=== PATIENT | female | born 1950 | race Caucasian/White ===

== ENCOUNTER 2016-10-13 17:37 | Emergency (ER) | payer MEDICARE, BC, OTHER ==
[~2016-10-13] VITALS: Ht 160 cm; Wt 90.9 kg
[~2016-10-13 17:37] MED LIST: ADIPEX-P37.5 MG PO; ALDACTONE 25MG25 M1 PO; AMBIEN 10MG10 MG PO; ASPI325T6 PO; ASPIR-LOW81 MG PO; COLACE 100100 MG/CAP PO; FERROUS SU325 MG/TAB PO; FISH OIL 1000MG1 CAP PO; FLONASEALLERGY NS; FOLIC ACID 40400 MCG PO; HCTZ 25MG TAB25 MG PO; KLOR-CON 1010 MEQ PO; KRILL OIL PO; LIPITOR 10MG10 MG PO; MACROBID100 MG PO; MELAT3MGTAB PO; MULTI VITAMINS1 TAB PO; MVI PO; NEXIUM 40MG40 MG PO; NORCO 325 MG-7.1 TAB PO; NORVASC 10MG10 MG PO; NORVASC 5MG5 MG/TAB; PHENTERMINE15 MG PO; ROXICODONE 55 MG/TAB PO; TAMBOCOR50 MG PO; TEKTURNA150 MG PO; VITAMIN C500 MG PO; ZOCOR5 MG PO
[2016-10-13 17:46] VITALS: TEMP 97.6
[2016-10-13 21:05] VITALS: BP 140/61; PULSE 77
== END 2016-10-13 21:06 | disposition home or self-care (01) ==
LOC: COL.ER 17:37
DX: S09.90XA Unspecified injury of head, initial encounter (principal); S16.1XXA Strain of muscle, fascia and tendon at neck level, initial encounter; S00.03XA Contusion of scalp, initial encounter; S70.01XA Contusion of right hip, initial encounter; W10.9XXA Fall (on) (from) unspecified stairs and steps, initial encounter; Y92.008 Other place in unspecified non-institutional (private) residence as the place of occurrence of the external cause; I10 Essential (primary) hypertension; Z87.891 Personal history of nicotine dependence; R40.2362 Coma scale, best motor response, obeys commands, at arrival to emergency department; R40.2142 Coma scale, eyes open, spontaneous, at arrival to emergency department; R40.2252 Coma scale, best verbal response, oriented, at arrival to emergency department

== ENCOUNTER → 2016-10-15 | Outpatient (CLI) | payer MEDICARE, BC, OTHER ==
[~2016-10-15] VITALS: Ht 160 cm; Wt 89.8 kg
[~2016-10-15] MED LIST changes: +ALEVE PM PO; +ATARAX 25MG25 MG/TAB PO; +DOXYCYCLINE 10100 MG PO; +LEXAPRO 10MG10 MG PO; +SENOKOT S 50 MG1 TAB PO; +TYLENOL 8 HR PO; +ZYRTEC 10MG10 MG PO
[2016-10-15 13:05] VITALS: BP 134/72; PULSE 66
[2016-10-15 15:29] VITALS: BP 134/72; PULSE 66
== END ==
LOC: LIGHT 10:24
DX: Z79.84 Long term (current) use of oral hypoglycemic drugs (principal); E66.09 Other obesity due to excess calories; Z68.35 Body mass index [BMI] 35.0-35.9, adult

== ENCOUNTER 2017-02-08 20:42 | Emergency (ER) | payer MEDICARE, BC, OTHER ==
[~2017-02-08] VITALS: Ht 160 cm; Wt 93.2 kg
[~2017-02-08 20:42] MED LIST changes: -ALEVE PM PO; -ATARAX 25MG25 MG/TAB PO; -DOXYCYCLINE 10100 MG PO; -LEXAPRO 10MG10 MG PO; -SENOKOT S 50 MG1 TAB PO; -TYLENOL 8 HR PO; -ZYRTEC 10MG10 MG PO
[2017-02-08 20:44] VITALS: BP 151/84; TEMP 98.1
[2017-02-08] MEDS ORDERED: ZYRTEC 10MG10 MG PO (20:47)
[2017-02-08] MEDS ORDERED: DOXYCYCLINE 10100 MG PO (21:34)
[2017-02-08 21:44] VITALS: PULSE 82
[2017-02-12 16:01] LABS: LYME IgG WESTERN BLOT Negative (Negative)
== END 2017-02-08 21:45 | disposition home or self-care (01) ==
LOC: COL.ER 20:42
PROVIDERS: Physician Assistant
DX: S30.861A Insect bite (nonvenomous) of abdominal wall, initial encounter (principal); W57.XXXA Bitten or stung by nonvenomous insect and other nonvenomous arthropods, initial encounter; I10 Essential (primary) hypertension; K21.9 Gastro-esophageal reflux disease without esophagitis

== ENCOUNTER 2017-04-23 12:30 | Inpatient (IN) | payer MEDICARE, BC, OTHER ==
[~2017-04-23] VITALS: Ht 160 cm; Wt 95.3 kg
[~2017-04-23 12:30] MED LIST changes: +DOXYCYCLINE 10100 MG PO; +ZYRTEC 10MG10 MG PO
[2017-05-26] VITALS (9 sets, daily range): BP systolic 93–125; BP diastolic 47–61; PULSE 47–59; TEMP 97.9–98.9
[2017-05-26] MEDS ORDERED: LEXAPRO 10MG10 MG PO (10:26)
[2017-05-26] MEDS ORDERED: ATARAX 25MG25 MG/TAB PO (10:27)
[2017-05-26] MEDS ORDERED: ALEVE PM PO (10:28)
[2017-05-26] MEDS ORDERED: TYLENOL 8 HR PO (10:29)
[2017-05-27 00:34] VITALS: BP 116/61; PULSE 58; TEMP 98.3
[2017-05-27 04:12] VITALS: BP 115/56; PULSE 69; TEMP 98.3
[2017-05-27 07:30] LABS: HEMOGLOBIN 10.4 g/dl (12.5-16.0)
[2017-05-27 08:45] VITALS: BP 116/61; PULSE 66; TEMP 97.9
[2017-05-27 12:33] VITALS: BP 123/59; PULSE 61; TEMP 99.2
[2017-05-27 16:15] VITALS: BP 122/58; PULSE 57; TEMP 98
[2017-05-27 20:10] VITALS: BP 117/47; PULSE 61; TEMP 98.5
[2017-05-28 00:23] VITALS: BP 118/51; PULSE 64; TEMP 98.2
[2017-05-28 04:00] VITALS: BP 114/47; PULSE 58; TEMP 98.2
[2017-05-28 07:27] LABS: HEMATOCRIT 29.2 % (37.0-47.0); HEMOGLOBIN 9.9 g/dl (12.5-16.0)
[2017-05-28 09:29] VITALS: BP 126/50; PULSE 69; TEMP 98.5
[2017-05-28 11:53] VITALS: BP 108/44; PULSE 74; TEMP 98.7
[2017-05-28 15:53] VITALS: BP 91/34; PULSE 69; TEMP 98.5
[2017-05-28 20:12] VITALS: BP 107/44; PULSE 73; TEMP 99.9
[2017-05-29 00:38] VITALS: BP 107/50; PULSE 77; TEMP 100.4; TEMP 99.2
[2017-05-29 04:37] VITALS: BP 99/45; PULSE 64; TEMP 98.5
[2017-05-29] MEDS ORDERED: ASPI325T6 PO (07:01)
[2017-05-29] MEDS ORDERED: NORCO 325 MG-7.1 TAB PO (07:02)
[2017-05-29] MEDS ORDERED: ROXICODONE 55 MG/TAB PO (07:02)
[2017-05-29] MEDS ORDERED: SENOKOT S 50 MG1 TAB PO (07:03)
[2017-05-29 07:54] VITALS: BP 99/65; PULSE 75; TEMP 98.2
== END 2017-05-29 10:13 | disposition home or self-care (01) | DRG 470 ==
LOC: JCC 05-26 08:38
PROVIDERS: Orthopaedic Surgery
PROC: 0SRD0J9 Replacement of Left Knee Joint with Synthetic Substitute, Cemented, Open Approach (ICD-10-PCS; principal; 2017-05-26 14:30)
DX: M17.12 Unilateral primary osteoarthritis, left knee (principal); I10 Essential (primary) hypertension; Z87.891 Personal history of nicotine dependence
CPT/HCPCS: A4315; A9284; C1713; C1776; J0690; J1885; J2250; J2270; J2704; J3010; J7120

== ENCOUNTER → 2017-05-12 | Outpatient (CLI) | payer MEDICARE, BC, OTHER ==
[~2017-05-12] MED LIST changes: +ALEVE PM PO; +ATARAX 25MG25 MG/TAB PO; +LEXAPRO 10MG10 MG PO; +SENOKOT S 50 MG1 TAB PO; +TYLENOL 8 HR PO
== END ==
LOC: COL.LAB 13:02
DX: Z01.812 Encounter for preprocedural laboratory examination (principal)

== ENCOUNTER → 2017-07-24 | Outpatient (CLI) | payer MEDICARE, BC, OTHER | LOC: COL.VAS 09:07 | DX: M79.662 Pain in left lower leg (principal) ==

== ENCOUNTER 2017-08-08 15:30 | Outpatient (RCR) | payer MEDICARE, BC, OTHER | END 2017-09-09 12:58 | disposition home or self-care (01) | LOC: MKS.ESL.PT 15:30 | DX: Z47.1 Aftercare following joint replacement surgery (principal); M25.862 Other specified joint disorders, left knee; R60.0 Localized edema; Z96.652 Presence of left artificial knee joint | CPT/HCPCS: G8978-GP; G8979-GP; G8980-GP ==

== ENCOUNTER 2018-10-07 10:00 | Outpatient (RCR) | payer MEDICARE, BC, OTHER | END 2018-12-15 | disposition home or self-care (01) | LOC: WSC | DX: M70.61 Trochanteric bursitis, right hip (principal) | CPT/HCPCS: G8978-GP; G8979-GP ==

== ENCOUNTER → 2018-10-20 | Outpatient (CLI) | payer MEDICARE, BC, OTHER | LOC: WSC 09-24 15:45 → MC.RAD 09:40 | DX: Z12.31 Encounter for screening mammogram for malignant neoplasm of breast (principal) ==

== ENCOUNTER → 2019-11-26 | Outpatient (CLI) | payer MEDICARE, BC | LOC: MC.RAD 10:36 | DX: Z12.31 Encounter for screening mammogram for malignant neoplasm of breast (principal) ==

== ENCOUNTER → 2020-02-17 | Outpatient (CLI) | payer MEDICARE, BC | LOC: COL.RAD 11:56 | DX: E04.2 Nontoxic multinodular goiter (principal) ==

== ENCOUNTER → 2020-10-16 | Outpatient (RCR) | payer MEDICARE, BC | END | disposition home or self-care (01) | LOC: MKS.ESL.PT | DX: M22.2X1 Patellofemoral disorders, right knee (principal) ==

== ENCOUNTER 2020-11-15 11:05 | Outpatient (RCR) | payer MEDICARE, BC | END 2021-02-13 | disposition still patient (30) | LOC: MKS.ESL.PT | DX: M22.2X2 Patellofemoral disorders, left knee (principal) ==

== ENCOUNTER → 2021-01-16 | Outpatient (CLI) | payer MEDICARE, BC | LOC: MC.RAD 10:00 | DX: Z12.31 Encounter for screening mammogram for malignant neoplasm of breast (principal) ==

== ENCOUNTER → 2022-02-12 | Outpatient (CLI) | payer MEDICARE, BC | LOC: MC.RAD 10:45 | DX: Z12.31 Encounter for screening mammogram for malignant neoplasm of breast (principal) ==

== ENCOUNTER → 2023-08-12 | Outpatient (RCR) | payer MEDICARE, BC | LOC: MKS.ESL.PT | DX: M25.511 Pain in right shoulder (principal) ==

== ENCOUNTER → 2023-09-11 | Outpatient (RCR) | payer MEDICARE, BC | END | disposition home or self-care (01) | LOC: MKS.ESL.PT | DX: M25.511 Pain in right shoulder (principal) ==

== ENCOUNTER 2023-10-09 09:45 | Outpatient (RCR) | payer MEDICARE, BC | END 2023-10-12 | disposition home or self-care (01) | LOC: MKS.ESL.PT | DX: M75.121 Complete rotator cuff tear or rupture of right shoulder, not specified as traumatic (principal); Z96.611 Presence of right artificial shoulder joint ==

== ENCOUNTER 2023-11-11 09:45 | Outpatient (RCR) | payer MEDICARE, BC | END 2023-11-12 | disposition home or self-care (01) | LOC: WSPT | DX: M75.121 Complete rotator cuff tear or rupture of right shoulder, not specified as traumatic (principal); Z96.611 Presence of right artificial shoulder joint ==

== ENCOUNTER 2023-11-21 09:45 | Outpatient (RCR) | payer MEDICARE, BC | END 2023-11-21 15:00 | disposition home or self-care (01) | LOC: WSPT 09:45 | DX: M75.121 Complete rotator cuff tear or rupture of right shoulder, not specified as traumatic (principal); Z96.611 Presence of right artificial shoulder joint ==